=== PATIENT | female | born 1995 | race African-American/Black ===

== ENCOUNTER 2021-12-05 06:25 | Inpatient (IN) ==
[2021-12-05] MEDS ORDERED: BUTORPHANOL 1 MG/ML VIAL IV PRN (06:33)
[2021-12-05] MEDS ORDERED: OXYTOCIN/LR 20 UNIT/1,000 ML BAG IV ONE (06:33)
[2021-12-05] MEDS ORDERED: TRANEXAMIC ACID 1,000 MG in SODIUM CHLORIDE 0.9% 100 ML IV PRN (06:33)
[2021-12-05] MEDS ORDERED: ACETAMINOPHEN 325 MG TABLET PO PRN (06:33)
[2021-12-05] MEDS ORDERED: miSOPROStoL 200 MCG TABLET RECTAL PRN (06:33)
[2021-12-05] MEDS ORDERED: BUTORPHANOL 2 MG/ML VIAL IV PRN (06:33)
[2021-12-05] MEDS ORDERED: CARBOPROST TROMETHAMINE 250 MCG/ML AMP IM PRN (06:33)
[2021-12-05] MEDS ORDERED: LACTATED RINGERS 500 ML IV PRN (06:33)
[2021-12-05] MEDS ORDERED: METHYLERGONOVINE 0.2 MG/1 ML AMP IM PRN (06:33)
[2021-12-05] MEDS ORDERED: MEPERIDINE 50 MG/1 ML VIAL IV PRN (06:33)
[2021-12-05 06:57] LABS: Basophils % 0.4 % (0.0-0.8); Eosinophils # 0.2 10*3/uL (0.0-0.87); Eosinophils % 2.3 % (0.00-10.9); Hematocrit 35.3 VOL% (35.7-47.0); Hemoglobin 11.4 GM/DL (12.0-16.0); Immature Granulocytes % 5.1 %; Immature Granulocytes Absolute 0.41 #; Lymphocytes # 1.2 10*3/uL (1.4-4.0); Lymphocytes % 15.5 % (21.3-54.2); Mean Corpuscular HGB Conc 32.3 GM/DL (32-36); Mean Corpuscular Volume 77.2 FL (87-102); Mean Platelet Volume 9.1 FL (9.6-12.0); Monocytes % 11.9 % (1.7-12.7); NRBC # 0.05 10*3/uL; Neutrophils % 64.8 % (38.7-73.9); Platelet Count 224 T/CUMM (130-400); Red Blood Count 4.57 MC/CUMM (3.8-5.5); Red Cell Distribution Width 17.5 % (9.3-17.3)
[2021-12-05] MEDS ORDERED: OXYTOCIN/LR 20 UNIT/1,000 ML BAG IV SCH ×2 (07:00→15:30)
[2021-12-05 07:19] LABS: Band Neutrophils 1 % (0-10); Eosinophils 5 % (0-10); Lymphocytes 17 % (20-55); Platelet Estimate Adequate; Total Cells Counted 100
[2021-12-05 07:20] LABS: Hypochromia Slight; Microcytosis Slight
[2021-12-05 07:30] LABS: Albumin 2.7 G/DL (3.4-5.0); Bilirubin,Total 0.4 MG/DL (0.20-1.00); Calcium 9.1 MG/DL (8.5-10.1); Potassium 3.9 MMOL/L (3.5-5.1); Total Protein 6.4 G/DL (6.4-8.2)
[2021-12-05] MEDS: MEPERIDINE 50 MG/1 ML VIAL IV PRN (17:14)
[2021-12-05] MEDS: ONDANSETRON 4 MG/2 ML VIAL IV PRN ×2 (17:15→22:29)
[2021-12-05] MEDS: LACTATED RINGERS 1,000 ML IV SCH ×3 (18:54→23:02)
[2021-12-06] MEDS: LACTATED RINGERS 1,000 ML IV SCH ×2 (02:21→07:18)
[2021-12-06] MEDS: MEPERIDINE 50 MG/1 ML VIAL IV PRN ×2 (03:01→05:15)
[2021-12-06] MEDS ORDERED: CITRIC ACID/SODIUM CITRATE 30 ML UDCUP PO PRN (05:06)
[2021-12-06] MEDS ORDERED: FAMOTIDINE 20 MG/2 ML VIAL IV PRN (05:06)
[2021-12-06] MEDS ORDERED: ceFAZolin 3,000 MG in SYRINGE 1 EACH IV PRN (05:06)
[2021-12-06] MEDS: ONDANSETRON 4 MG/2 ML VIAL IV PRN (05:16)
[2021-12-06] MEDS ORDERED: ONDANSETRON 4 MG/2 ML VIAL ONE (06:48)
[2021-12-06] MEDS ORDERED: SODIUM CHLORIDE 0.9% 0 ML IV ONE ×2 (06:48→07:15)
[2021-12-06] MEDS ORDERED: buprenorphine HCL 0.3 MG/ML VIAL ONE (06:48)
[2021-12-06] MEDS ORDERED: BUPIVACAINE MPF 0.5% 30 ML VIAL ONE (06:48)
[2021-12-06] MEDS ORDERED: miSOPROStoL 200 MCG TABLET ONE (07:15)
[2021-12-06] MEDS ORDERED: TRANEXAMIC ACID 1,000 MG/10 ML VIAL ONE (07:15)
[2021-12-06] MEDS ORDERED: OXYTOCIN/LR 20 UNIT/1,000 ML BAG IV ONE ×2 (07:15→09:30)
[2021-12-06] MEDS ORDERED: METHYLERGONOVINE 0.2 MG/1 ML AMP ONE (07:16)
[2021-12-06] MEDS ORDERED: CARBOPROST TROMETHAMINE 250 MCG/ML AMP IM ONE (07:16)
[2021-12-06] MEDS ORDERED: KETOROLAC 30 MG/1 ML VIAL ONE (08:08)
[2021-12-06] MEDS ORDERED: PHENYLEPHRINE 1 MG/10 ML SYRINGE IV ONE ×2 (08:08→08:35)
[2021-12-06] MEDS ORDERED: ACETAMINOPHEN INJ 1,000 MG/100 ML VIAL IV ONE (08:08)
[2021-12-06 08:27] LABS: Cord Arterial Blood HCO3 10.2 MMOL/L; Cord Venous Blood HCO3 23.4 MMOL/L; Cord Venous Blood PO2 < 19.0 MMHG
[2021-12-06 08:30] LABS: Mucus,Urine Moderate /LPF (Occasional); RBC,Urine 16 /HPF (0-4); Urine Appearance Clear (Clear); Urine Color Yellow (Yellow)
[2021-12-06 08:31] LABS: Bilirubin,Urine Negative (Negative); Blood, Urine Moderate mg/dL (Negative); Glucose,Urine (UA) Negative (Negative); Ketones,Urine 15 mg/dL (Negative); Nitrite,Urine Negative (Negative); Protein,Urine 100 mg/dL (Negative); Urine Specific Gravity > 1.030 (1.001-1.035); Urine Urobilinogen 0.2 eU/dL (<2.0)
[2021-12-06] MEDS ORDERED: ACETAMINOPHEN 325 MG TABLET PO PRN (08:55)
[2021-12-06] MEDS ORDERED: SIMETHICONE CHEW 80 MG TABLET PO PRN (08:55)
[2021-12-06] MEDS ORDERED: MAGNESIUM HYDROXIDE SUSP 30 ML UDCUP PO PRN (08:55)
[2021-12-06] MEDS ORDERED: ONDANSETRON 4 MG/2 ML VIAL IV PRN (08:55)
[2021-12-06] MEDS ORDERED: RHO(D) IMMUNE GLOBULIN 300 MCG SYRINGE IM ONE (09:30)
[2021-12-06] MEDS ORDERED: LACTATED RINGERS 1,000 ML IV SCH (09:30)
[2021-12-06] MEDS: DOCUSATE SODIUM 100 MG CAPSULE PO SCH ×2 (13:20→20:22)
[2021-12-06] MEDS: MULTIVITAMIN (PRENATAL) TABLET PO SCH (13:20)
[2021-12-06] MEDS ORDERED: ACETAMINOPHEN 500 MG TABLET PO PRN (14:00)
[2021-12-06] MEDS: KETOROLAC 30 MG/1 ML VIAL IV SCH ×2 (14:11→20:18)
[2021-12-06] MEDS: ACETAMINOPHEN 500 MG TABLET PO SCH ×2 (14:12→20:18)
[2021-12-06 15:41] LABS: Basophils % 0.2 % (0.0-0.8); Eosinophils # 0.1 10*3/uL (0.0-0.87); Eosinophils % 0.8 % (0.00-10.9); Hemoglobin 10.3 GM/DL (12.0-16.0); Immature Granulocytes % 1.6 %; Immature Granulocytes Absolute 0.18 #; Lymphocytes % 8.5 % (21.3-54.2); Mean Corpuscular HGB Conc 31.2 GM/DL (32-36); Mean Corpuscular Volume 78.6 FL (87-102); Mean Platelet Volume 8.9 FL (9.6-12.0); Monocytes # 1.5 10*3/uL (0.11-0.8); Monocytes % 12.8 % (1.7-12.7); NRBC # 0.02 10*3/uL; Neutrophils % 76.1 % (38.7-73.9); Platelet Count 192 T/CUMM (130-400); Red Cell Distribution Width 18.1 % (9.3-17.3); White Blood Count 11.4 T/CUMM (4-12)
[2021-12-07] MEDS ORDERED: ceFAZolin 2,000 MG in SODIUM CHLORIDE 0.9% 100 ML IV SCH
[2021-12-07] MEDS: KETOROLAC 30 MG/1 ML VIAL IV SCH ×3 (03:53→13:45)
[2021-12-07] MEDS: ACETAMINOPHEN 500 MG TABLET PO SCH ×2 (03:53→09:00)
[2021-12-07] MEDS: ENOXAPARIN 40 MG/0.4 ML SYRINGE SUBCUT SCH (03:55)
[2021-12-07 05:52] LABS: Basophils % 0.3 % (0.0-0.8); Eosinophils # 0.2 10*3/uL (0.0-0.87); Eosinophils % 1.8 % (0.00-10.9); Hematocrit 31.1 VOL% (35.7-47.0); Hemoglobin 9.9 GM/DL (12.0-16.0); Immature Granulocytes % 1.8 %; Immature Granulocytes Absolute 0.17 #; Lymphocytes # 1.3 10*3/uL (1.4-4.0); Lymphocytes % 13.5 % (21.3-54.2); Mean Corpuscular HGB Conc 31.8 GM/DL (32-36); Mean Corpuscular Volume 79.5 FL (87-102); Mean Platelet Volume 9.5 FL (9.6-12.0); Monocytes # 1.4 10*3/uL (0.11-0.8); Monocytes % 14.6 % (1.7-12.7); NRBC # 0.03 10*3/uL; Platelet Count 178 T/CUMM (130-400); Red Blood Count 3.91 MC/CUMM (3.8-5.5); Red Cell Distribution Width 18.5 % (9.3-17.3); White Blood Count 9.5 T/CUMM (4-12)
[2021-12-07] MEDS: DOCUSATE SODIUM 100 MG CAPSULE PO SCH ×2 (08:59→21:26)
[2021-12-07] MEDS: MULTIVITAMIN (PRENATAL) TABLET PO SCH (11:55)
[2021-12-07] MEDS: IBUPROFEN 800 MG TABLET PO PRN ×2 (13:44→21:50)
[2021-12-07] MEDS: oxyCODONE/ACETAMINOPHEN 5-325 MG TABLET PO PRN ×2 (13:45→21:50)
[2021-12-08] MEDS: ENOXAPARIN 40 MG/0.4 ML SYRINGE SUBCUT SCH (03:21)
[2021-12-08] MEDS: IBUPROFEN 800 MG TABLET PO PRN ×3 (05:14→19:35)
[2021-12-08] MEDS: oxyCODONE/ACETAMINOPHEN 5-325 MG TABLET PO PRN ×3 (05:14→19:36)
[2021-12-08] MEDS: MULTIVITAMIN (PRENATAL) TABLET PO SCH (08:09)
[2021-12-08] MEDS: DOCUSATE SODIUM 100 MG CAPSULE PO SCH ×2 (08:10→21:48)
[2021-12-09] MEDS: IBUPROFEN 800 MG TABLET PO PRN (01:55)
[2021-12-09] MEDS: oxyCODONE/ACETAMINOPHEN 5-325 MG TABLET PO PRN (01:55)
[2021-12-09] MEDS: ENOXAPARIN 40 MG/0.4 ML SYRINGE SUBCUT SCH (03:59)
[2021-12-09] MEDS: DOCUSATE SODIUM 100 MG CAPSULE PO SCH (09:29)
[2021-12-09] MEDS: MULTIVITAMIN (PRENATAL) TABLET PO SCH (09:29)
[2021-12-09 10:15] VITALS: BP 136/84
== END 2021-12-09 10:25 | disposition home or self-care (01) | DRG 788 ==
LOC: N.LD 06:25 → N.OB 12-06 11:36
PROVIDERS: ADMIT Obstetrics & Gynecology; ATTEND Obstetrics & Gynecology
PROC: LDCSECT (ICD-10-PCS; 2021-12-06 07:30)

== ENCOUNTER 2021-12-14 10:26 | Observation (INO) ==
[2021-12-14] MEDS ORDERED: SODIUM CHLORIDE 0.9% 1,000 ML IV STA (11:20)
[2021-12-14] MEDS ORDERED: ONDANSETRON 4 MG/2 ML VIAL IV STA (11:20)
[2021-12-14 12:03] LABS: Basophils % 0.5 % (0.0-0.8); Eosinophils # 0.2 10*3/uL (0.0-0.87); Eosinophils % 2.2 % (0.00-10.9); Hematocrit 35.3 VOL% (35.7-47.0); Hemoglobin 11.3 GM/DL (12.0-16.0); Immature Granulocytes Absolute 0.43 #; Lymphocytes # 1.1 10*3/uL (1.4-4.0); Lymphocytes % 13.2 % (21.3-54.2); Mean Corpuscular Volume 78.1 FL (87-102); Mean Platelet Volume 8.4 FL (9.6-12.0); Monocytes # 0.8 10*3/uL (0.11-0.8); Monocytes % 9.7 % (1.7-12.7); NRBC # 0.03 10*3/uL; Neutrophils % 69.4 % (38.7-73.9); Platelet Count 390 T/CUMM (130-400); Red Blood Count 4.52 MC/CUMM (3.8-5.5); Red Cell Distribution Width 17.3 % (9.3-17.3); White Blood Count 8.6 T/CUMM (4-12)
[2021-12-14 12:07] LABS: Mucus,Urine Many /LPF (Occasional); RBC,Urine 27 /HPF (0-4); Squamous Epithelial Cell,Urine Occasional /HPF (0-10)
[2021-12-14 12:08] LABS: Glucose,Urine (UA) Negative (Negative); Protein,Urine 2+ mg/dL (Negative); Urine Appearance Slightly Cloudy (Clear); Urine Color Yellow (Yellow); Urine Specific Gravity 1.028 (1.001-1.035)
[2021-12-14 12:09] LABS: Bilirubin,Urine Moderate mg/dL (Negative); Blood, Urine Large mg/dL (Negative); Ketones,Urine >=160 mg/dL (Negative); Nitrite,Urine Negative (Negative)
[2021-12-14 12:22] LABS: Alanine Aminotransferase 18 U/L (13-56); Albumin 2.8 G/DL (3.4-5.0); Alkaline Phosphatase 97 U/L (45-117); Aspartate Amino Transferase 20 U/L (0-37); Bilirubin,Total < 0.39 MG/DL (0.20-1.00); Blood Urea Nitrogen 8 MG/DL (7-18); Calcium 8.7 MG/DL (8.5-10.1); Carbon Dioxide 25 MMOL/L (21-32); Chloride 106 MMOL/L (98-107); Estimated Glom Filtration Rate 157 ML/MIN; Glucose 75 MG/DL (74-106); Osmolality,Calculated 275.4 MOS/KG (273-304); Potassium 3.9 MMOL/L (3.5-5.1); Sodium 140 MMOL/L (136-145); Total Protein 6.9 G/DL (6.4-8.2)
[2021-12-14] MEDS ORDERED: ACETAMINOPHEN 325 MG TABLET PO PRN (15:15)
[2021-12-14] MEDS ORDERED: BISACODYL 10 MG SUPP RECTAL PRN (15:15)
[2021-12-14] MEDS ORDERED: MAGNESIUM HYDROXIDE SUSP 30 ML UDCUP PO PRN (15:15)
[2021-12-14] MEDS: CLINDAMYCIN INJ 900 MG/50 ML PREMIX IV SCH ×2 (17:18→23:15)
[2021-12-14] MEDS: SODIUM CHLORIDE 0.9% 1,000 ML IV SCH (17:24)
[2021-12-14] MEDS: ONDANSETRON 4 MG/2 ML VIAL IV PRN (17:27)
[2021-12-14] MEDS: metroNIDAZOLE INJ 500 MG/100 ML PREMIX IV SCH (17:55)
[2021-12-14] MEDS: ALUMINUM/MAGNES/SIMETH MAX STR 30 ML UDCUP PO PRN (20:05)
[2021-12-14] MEDS: DOCUSATE SODIUM 100 MG CAPSULE PO SCH (20:11)
[2021-12-14] MEDS: PROMETHAZINE 25 MG/1 ML VIAL IM PRN (21:49)
[2021-12-15] MEDS: metroNIDAZOLE INJ 500 MG/100 ML PREMIX IV SCH ×3 (00:57→16:51)
[2021-12-15] MEDS: SODIUM CHLORIDE 0.9% 1,000 ML IV SCH ×3 (05:13→22:28)
[2021-12-15 05:21] LABS: Basophils # 0.1 10*3/uL (0.0-0.2); Basophils % 0.6 % (0.0-0.8); Eosinophils # 0.2 10*3/uL (0.0-0.87); Eosinophils % 2.1 % (0.00-10.9); Hematocrit 33.7 VOL% (35.7-47.0); Hemoglobin 10.6 GM/DL (12.0-16.0); Immature Granulocytes % 4.4 %; Immature Granulocytes Absolute 0.35 #; Lymphocytes # 1.2 10*3/uL (1.4-4.0); Lymphocytes % 14.5 % (21.3-54.2); Mean Corpuscular HGB Conc 31.5 GM/DL (32-36); Mean Corpuscular Volume 78.2 FL (87-102); Mean Platelet Volume 8.7 FL (9.6-12.0); Monocytes # 0.8 10*3/uL (0.11-0.8); Monocytes % 10.6 % (1.7-12.7); NRBC # 0.03 10*3/uL; Neutrophils % 67.8 % (38.7-73.9); Platelet Count 369 T/CUMM (130-400); Red Blood Count 4.31 MC/CUMM (3.8-5.5); Red Cell Distribution Width 17.1 % (9.3-17.3); White Blood Count 7.9 T/CUMM (4-12)
[2021-12-15] MEDS: ALUMINUM/MAGNES/SIMETH MAX STR 30 ML UDCUP PO PRN ×2 (05:22→12:56)
[2021-12-15] MEDS: PROMETHAZINE 25 MG/1 ML VIAL IM PRN ×2 (05:24→23:32)
[2021-12-15] MEDS: DOCUSATE SODIUM 100 MG CAPSULE PO SCH ×2 (08:44→20:22)
[2021-12-15] MEDS: CLINDAMYCIN INJ 900 MG/50 ML PREMIX IV SCH ×3 (08:44→23:21)
[2021-12-15] MEDS: OMEPRAZOLE ODT 20 MG TABLET PER TUBE SCH (12:32)
[2021-12-15] MEDS: IBUPROFEN 800 MG TABLET PO PRN (12:56)
[2021-12-15] MEDS: ONDANSETRON 4 MG/2 ML VIAL IV PRN (21:08)
[2021-12-16] MEDS: metroNIDAZOLE INJ 500 MG/100 ML PREMIX IV SCH ×3 (00:54→17:56)
[2021-12-16] MEDS: SODIUM CHLORIDE 0.9% 1,000 ML IV SCH ×3 (03:15→20:55)
[2021-12-16] MEDS: DOCUSATE SODIUM 100 MG CAPSULE PO SCH ×2 (09:05→20:54)
[2021-12-16] MEDS: OMEPRAZOLE ODT 20 MG TABLET PER TUBE SCH (09:05)
[2021-12-16] MEDS: CLINDAMYCIN INJ 900 MG/50 ML PREMIX IV SCH ×3 (09:06→23:16)
[2021-12-16] MEDS: METOCLOPRAMIDE 10 MG/10 ML UDCUP PO SCH ×2 (14:08→20:55)
[2021-12-17] MEDS: metroNIDAZOLE INJ 500 MG/100 ML PREMIX IV SCH ×3 (00:55→16:14)
[2021-12-17] MEDS: METOCLOPRAMIDE 10 MG/10 ML UDCUP PO SCH ×2 (05:51→14:19)
[2021-12-17] MEDS: SODIUM CHLORIDE 0.9% 1,000 ML IV SCH ×3 (06:28→19:20)
[2021-12-17] MEDS: DOCUSATE SODIUM 100 MG CAPSULE PO SCH (10:08)
[2021-12-17] MEDS: OMEPRAZOLE ODT 20 MG TABLET PER TUBE SCH (10:09)
[2021-12-17] MEDS: CLINDAMYCIN INJ 900 MG/50 ML PREMIX IV SCH ×2 (10:09→16:07)
[2021-12-17] MEDS: IBUPROFEN 800 MG TABLET PO PRN (17:04)
[2021-12-17] MEDS ORDERED: PANTOPRAZOLE 40 MG TABLET PO SCH (19:00)
[2021-12-17 22:07] VITALS: BP 145/97
== END 2021-12-17 19:54 | disposition home or self-care (01) ==
LOC: N.3E 10:26 → N.ED 10:26 → N.3E 15:00
PROVIDERS: ADMIT Obstetrics & Gynecology; ATTEND Obstetrics & Gynecology